=== PATIENT | male | born 1995 | race Two or more races ===

== ENCOUNTER → 2018-11-02 | Outpatient (CLI) | payer OTHER | END | disposition home or self-care (01) | LOC: LAB 07:33 | PROVIDERS: ATTEND Nurse Practitioner | DX: Z02.1 Encounter for pre-employment examination (principal) | CPT/HCPCS: 86735; 86762; 86765; 86787 ==

== ENCOUNTER 2019-11-12 01:09 | Inpatient (IN) | payer MEDICAID, OTHER ==
[~2019-11-12] VITALS: Ht 175.3 cm; Wt 67.5 kg
[2019-11-12 02:18] LABS: Basophils # (auto) 0 10 ^3/uL (0-0.2); Basophils % (auto) 0.6 % (0.0-2.0); Eosinophils # (auto) 0.3 10 ^3/uL (0-0.8); Hematocrit 46.1 % (41.0-53.0); Hemoglobin 15.6 g/dL (13.5-17.5); Lymphocytes # (auto) 2.2 10 ^3/uL (0.4-5.4); Lymphocytes % (auto) 30.1 % (10.0-50.0); Mean Corpuscular Hemoglobin 30.2 pg (28.0-32.0); Mean Corpuscular Hgb Conc. 33.8 g/dL (32.0-36.0); Mean Corpuscular Volume 89.3 fL (80.0-100.0); Monocytes # (auto) 0.4 10 ^3/uL (0-1.3); Monocytes % (auto) 6.1 % (0.0-12.0); Neutrophils # (auto) 4.3 10 ^3/uL (1.6-8.6); Neutrophils % (auto) 59.2 % (37.0-80.0); Nucleated Red Blood Cells % 0.1 %; Platelet Count (auto) 256 10^3/uL (140-450); Red Blood Cells 5.16 10^6/uL (4.5-5.90); Red Cell Distribution Width 13.9 % (11.8-14.3); White Blood Cell 7.3 10^3/uL (4.4-10.8)
[2019-11-12 02:37] LABS: Albumin 4.1 g/dL (3.4-5.0); Calcium 8.7 mg/dL (8.5-10.1); INR 1.06 (0.9-1.15); Magnesium 2.6 mg/dL (1.6-2.6); Partial Thromboplastin Time 27.4 sec (23.64-32.05); Potassium 3.9 mmol/L (3.5-5.1)
[2019-11-12 02:41] LABS: Bilirubin, Total 0.7 mg/dL (0.2-1.0); Total Protein 6.9 g/dL (6.4-8.2)
[2019-11-12] MEDS ORDERED: ASPirin 81 mg TAB PO ONE (07:00)
[2019-11-12] MEDS ORDERED: ENOXAPARIN SOD 80 MG/0.8ML SYRINGE SC ONE (07:00)
[2019-11-12] MEDS ORDERED: ONDANSETRON HCL 4 MG/2 ML VIAL IV PRN (07:15)
[2019-11-12] MEDS ORDERED: ACETAMINOPHEN 325 MG TAB PO PRN (07:15)
[2019-11-12] MEDS ORDERED: MORPHINE SULF INJ 2 MG/ML SYRINGE 1ML IV PRN (07:15)
[2019-11-12] MEDS ORDERED: NITROGLYCERIN 0.4 MG SL TAB SL PRN (07:15)
[2019-11-12] MEDS: SODIUM CHLORIDE 0.9% 1,000 ML IV SCH ×2 (08:04→21:05)
[2019-11-12 08:20] LABS: Alcohol, Urine < 3.0 mg/dL (0-10); Amphetamine Screen, Urine NEGATIVE (NEGATIVE); Barbiturate Scree,Urine NEGATIVE (NEGATIVE); Benzodiazephine Screen, Urine NEGATIVE (NEGATIVE); Cannabinoid Screen, Urine NEGATIVE (NEGATIVE); Cocaine Screen, Urine NEGATIVE (NEGATIVE); Opiate Scree,Urine NEGATIVE (NEGATIVE); Phencyclidine Screen, Urine NEGATIVE (NEGATIVE)
--- NOTE | 2019-11-12 08:45 | NUR ---
Telemetry admit from [facility] admitted to Telemetry unit after SBAR received. Patient oriented to LEANDER MEJIA RN primary RN, [facility] unit, 223 room, B bed, and unit policies regarding patient care and visiting hours. Patient now on continuous telemetry monitoring, tele box # 30 and telemetry reading on arrival to unit is SR . Patient placed on bedside, weighed by bedscale and encouraged to call if they need something. All questions and concerns addressed, patient verbalized understanding. Note:
[2019-11-12 09:22] VITALS: BP 114/65
[2019-11-12] MEDS ORDERED: CLOPIDOGREL BISULFATE 75 MG TAB PO SCH (10:00)
[2019-11-12] MEDS ORDERED: ENOXAPARIN SOD 80 MG/0.8ML SYRINGE SC SCH (10:00)
[2019-11-12] MEDS ORDERED: CARVEDILOL 3.125 MG TAB PO SCH (10:00)
[2019-11-12] MEDS ORDERED: LISINOPRIL 10 MG TAB PO SCH (10:00)
[2019-11-12] MEDS: DOCUSATE SOD 100 MG CAP PO SCH (11:30)
[2019-11-12] MEDS: ASPirin 81 mg TAB PO SCH (11:30)
[2019-11-12 13:11] VITALS: BP 109/55
[2019-11-12] MEDS ORDERED: LACTULOSE 20Gm/30ML SOLN PO PRN (14:45)
--- NOTE | 2019-11-12 15:00 | NUR ---
PATIENT DECLINED TO AMBULATE PATIENT WAS SLEEPING AND HAD JUST GOTTEN TO SLEEP.
[2019-11-12 17:16] VITALS: BP 111/55
[2019-11-12 17:17] VITALS: BP_SYST 112; BP_SYST 118; BP_DIAS 64; BP_DIAS 71
--- NOTE | 2019-11-12 17:30 | NUR ---
ORTHOSTATIC BLOOD PRESSURES LYING 111/55 56, SITTING 118/71 58, STANDING 112/64 78
--- NOTE | 2019-11-12 19:35 | NUR ---
Opening Shift Note Assumed care of patient, awake and alert. No S/S of distress/SOB or pain. Bed in lowest locked position, safety precautions in place and call light within reach. Instructed on POC and to call for assist PRN, will continue to monitor for changes Q1hr and PRN. Signed: 11/13/19 at 004 by DENISSE NIEVES SN <Co-Signature Required> Co-Signed: 11/13/19 at 42 by Cadence Belle RN RN
[2019-11-12 22:00] VITALS: BP 109/49
[2019-11-12] MEDS ORDERED: MECLIZINE HCL 25 MG TAB PO SCH (22:00)
[2019-11-12] MEDS ORDERED: ATORVASTATIN 20 MG TAB PO SCH (22:00)
[2019-11-13 05:00] VITALS: BP 107/43
[2019-11-13 06:47] LABS: Potassium 4.1 mmol/L (3.5-5.1)
[2019-11-13 07:09] LABS: BUN/Creatinine Ratio 17.2; Calcium 8.6 mg/dL (8.5-10.1)
[2019-11-13 08:00] VITALS: BP 101/54
[2019-11-13] MEDS: DOCUSATE SOD 100 MG CAP PO SCH (09:57)
[2019-11-13] MEDS: SODIUM CHLORIDE 0.9% 1,000 ML IV SCH (09:57)
[2019-11-13] MEDS: ASPirin 81 mg TAB PO SCH (09:57)
[2019-11-13 12:00] VITALS: BP 104/65
[2019-11-13] MEDS ORDERED: HYDR-3682 PO (16:32)
[2019-11-13 17:00] VITALS: BP 111/74
[2019-11-13 17:59] VITALS: BP 111/55
== END 2019-11-13 18:30 | disposition home or self-care (01) | DRG 203 ==
LOC: ER 01:09 → OVERFLOW 01:10 → CENTRAL 08:29 → TELE-CENTR 09:26
PROVIDERS: ADMIT Hospitalist; ATTEND Internal Medicine Nephrology
DX: R07.89 Other chest pain (principal); N17.9 Acute kidney failure, unspecified; R00.0 Tachycardia, unspecified; R00.1 Bradycardia, unspecified; Z83.3 Family history of diabetes mellitus
CPT/HCPCS: 36415; 71046; 74176; 80048; 80053; 80061; 80307; 83036; 83735; 84443; 84484; 85025; 85610; 85652; 85730; 86141; 93005; 93306; 96372; 99291; G0378

== ENCOUNTER 2019-12-07 03:41 | Emergency (ER) | payer MEDICAID ==
[~2019-12-07] VITALS: Ht 175.3 cm; Wt 81.6 kg
[~2019-12-07 03:41] MED LIST: HYDR-3682 PO
[2019-12-07 04:25] VITALS: BP 118/66
== END 2019-12-07 04:49 | disposition home or self-care (01) ==
LOC: EDBD 03:41 → ER 03:43
DX: F41.9 Anxiety disorder, unspecified (principal); F45.22 Body dysmorphic disorder; Z76.0 Encounter for issue of repeat prescription